=== PATIENT | female | born 1975 | race Hispanic/Latino ===

== ENCOUNTER 2018-06-20 09:21 | Emergency (ER) | payer MEDICAID, OTHER ==
[2018-06-20 09:29] VITALS: BMI 21.6
[2018-06-20 09:37] VITALS: BP 115/73; PULSE 111; RESP 18; TEMP 98.5; O2SAT 98
--- NOTE | 2018-06-20 09:38 | ED PDOC ---
Arrival/HPI - General Chief Complaint: Eye Problem Time Seen by Provider: 06/20/18 09:33 Historian: Patient - History of Present Illness Narrative History of Present Illness (Text): 06/20/18 09:35 42 year old female with no significant PMH presents to the ED c/o right eye/cheek discomfort x 2 days. Pt states she tweezed a hair from her right cheek 2 days ago and since that time has been experiencing swelling and pain to the ar ea. Has not taken any medication for pain. Pt does not wear contacts or glasses. States she has had similar symptoms once before last year, where she was admitted for IV antibiotics at a different hospital. Denies trauma, fevers, chills, changes in vision, dizziness, headache, nausea, vomiting, abdominal pain, chest pain, SOB, sore throat, cough, congestion, or any other associated symptoms. Past Medical History - Provider Review Nursing Documentation Reviewed: Yes - Infectious Disease Hx of Infectious Diseases: None - Psychiatric Hx Substance Use: No - Anesthesia Hx Anesthesia: No Family/Social History - Physician Review Nursing Documentation Reviewed: Yes Family/Social History: No Known Family HX Smoking Status: Heavy Smoker > 10 Cigarettes Daily Hx Alcohol Use: Yes Frequency of alcohol use: Socially Hx Substance Use: No Allergies/Home Meds Allergies/Adverse Reactions: Allergies No Known Allergies Allergy (Verified 06/20/18 09:29) Home Medications: Home Meds Medication Instructions Recorded Confirmed No Known Home Med 06/20/18 06/20/18 Review of Systems - Review of Systems Constitutional: Normal. absent: Fevers Eyes: absent: Vision Changes, Photophobia ENT: Normal. absent: Sore Throat, Sinus Congestion Respiratory: Normal. absent: SOB, Cough Cardiovascular: Normal. absent: Chest Pain, Palpitations Gastrointestinal: Normal. absent: Nausea, Vomiting Musculoskeletal: Normal. absent: Back Pain, Neck Pain Skin: Cellulitis (right cheek and upper/lower eyelids of right eye). absent: Rash Neurological: Normal. absent: Headache, Dizziness Physical Exam Vital Signs Reviewed: Yes Temperature: Afebrile Blood Pressure: Normal Pulse: Tachycardic Respiratory Rate: Normal Appearance: Positive for: Well-Appearing, Non-Toxic, Comfortable Pain Distress: None Mental Status: Positive for: Alert and Oriented X 3 - Systems Exam Head: Present: Atraumatic, Normocephalic, Tenderness (to upper and lower eyelid and over cheek, right side), Swelling (to upper and lower eyelid and over cheek, right side; moderate), Other (induration and warmth to skin over right zygoma and maxillary bone, no fluctuance; 0.5cm central opening with purulent drainage ). No: Ecchymosis Pupils: Present: PERRL Extroacular Muscles: Present: EOMI (WITHOUT pain), Other (Significant right sided periorbital edema; pt unable to open eyelids without assistance; NO proptosis). No: Gaze Palsy, Entrapment Conjunctiva: Present: Normal. No: Injected Ears: Present: Normal, NORMAL TM, Normal Canal Mouth: Present: Moist Mucous Membranes Pharnyx: Present: Normal. No: ERYTHEMA, EXUDATE, TONSILS ENLARGED Nose (External): Present: Atraumatic Nose (Internal): Present: Normal Inspection Neck: Present: Normal Range of Motion. No: Meningeal Signs Respiratory/Chest: Present: Clear to Auscultation, Good Air Exchange. No: Respiratory Distress, Accessory Muscle Use Cardiovascular: Present: Regular Rate and Rhythm, Normal S1, S2, Peripheal Pulses Present Upper Extremity: Present: Normal Inspection, Normal ROM, NORMAL PULSES, Neurovascularly Intact, Capillary Refill < 2s. No: Cyanosis, Edema, Temperature Abnormalties Lower Extremity: Present: Normal ROM Neurological: Present: GCS=15, CN II-XII Intact, Speech Normal, Motor Func Grossly Intact, Normal Sensory Function, Gait Normal Skin: Present: Warm, Dry, Erythematous (Ove right zygoma, maxillary bone and periorbital skin), Induration (Ove right zygoma, maxillary bone), Hot (Ove right zygoma, maxillary bone and periorbital skin). No: Rashes Psychiatric: Present: Alert, Oriented x 3, Normal Insight, Normal Concentration, Normal Affect, Normal Mood Medical Decision Making ED Course and Treatment: 06/20/18 09:38 Initial Plan: * Visual acuity * CBC, CMP * Coags * Maxillofacial CT with IV contrast Patient asking to leave ED, refusing CT. Advised pt that CT is necessary to rule out deep tissue infection, but pt continues to refuse. Advised pt that she will need to sign out AMA. Patient agrees. AMA form signed by me and patient, witnessed by nurse Rosas. The patient is choosing to leave against medical advice. I have personally explained to the patient that choosing to do so may result in permanent bodily harm, disability, or . I have discussed at great length that without further evaluation and monitoring there may be unforeseen circumstances and/or deterioration causing permanent bodily harm or as a result of their choice. The patient is alert, oriented, and shows the mental capacity to make clear decisions regarding the patients health care at this time. The patient continues to wish to leave against medical advice. In light of the patients decision to leave against medical advice, follow-up has been arranged and the patient is aware of the importance to following up as instructed. The patient has been advised that they should return to the emergency room immediately if they change their mind at any time, or if their condition begins to change or worsen in any way. - Lab Interpretations I have reviewed the lab results: Yes Disposition/Present on Arrival - Present on Arrival Any Indicators Present on Arrival: No History of DVT/PE: No History of Uncontrolled Diabetes: No Urinary Catheter: No History of Decub. Ulcer: No History Surgical Site Infection Following: None - Disposition Have Diagnosis and Disposition been Completed?: No Diagnosis: Cellulitis, Left against medical advice Disposition: AGAINST MEDICAL ADVICE Disposition Time: 10:38 Condition: GUARDED Discharge Instructions (ExitCare): Cellulitis (ED), Leaving Against Medical Advice Additional Instructions: Followup with primary doctor today Return to ER if you wish to be re-evaluated or if new/worsening symptoms develop Forms: [employer] (Filipino)
[2018-06-20] MEDS ORDERED: Sodium Chloride 0.9% 1,000 ML IV STA (09:58)
[2018-06-20 10:49] LABS: BASO # 0.02 K/mm3 (0.0-2.0); BASO % 0.2 % (0.0-3.0); EOS # 0.2 (0.0-0.7); EOS % 1.8 % (1.5-5.0); HEMOGLOBIN 12.4 g/dL (12.0-16.0); LYMPH # 1.3 (1.2-3.4); LYMPH % 10.6 % (22.0-35.0); MEAN CELL VOLUME 91.4 fl (80.0-105.0); MEAN CORPUSCULAR HEMOGLOBIN 30.5 pg (25.0-35.0); MEAN CORPUSCULAR HGB CONC 33.4 g/dl (31.0-37.0); MONO # 1.1 (0.1-0.6); MONO % 8.7 % (1.0-6.0); RBC 4.06 10^6/uL (3.5-6.1); RED CELL DISTRIBUTION WIDTH 12.5 % (11.5-14.5); WHITE BLOOD COUNT 12.5 10^3/uL (4.5-11.0)
[2018-06-20 10:59] LABS: ALB/GLOB RATIO 1.4 (1.1-1.8); ALBUMIN 3.7 g/dL (3.0-4.8); ALT/SGPT 9 U/L (7-56); AST/SGOT 13 U/L (14-36); BLOOD UREA NITROGEN 10 mg/dL (7-21); CALCIUM 8.6 mg/dL (8.4-10.5); GFR NON-AFRICAN AMERICAN > 60
[2018-06-20 11:16] LABS: INR 1.15; PARTIAL THROMBOPLASTIN TIME 32.5 Seconds (26.9-38.3)
== END 2018-06-20 10:52 | disposition left against medical advice (07) ==
LOC: ED 09:21
DX: L03.211 Cellulitis of face (principal); F17.210 Nicotine dependence, cigarettes, uncomplicated